=== PATIENT | male | born 1960 | race African-American/Black ===

== ENCOUNTER 2017-07-23 08:39 | Day surgery (SDC) | payer BC, OTHER ==
[2017-07-22 17:15] VITALS: BMI 24.3
--- NOTE | 2017-07-23 08:08 | HP ---
Satellite [facility] - Chief Complaint Chief Complaint: left wrist pain - Past Medical History Allergies/Adverse Reactions: Allergies Allergy/AdvReac Type Severity Reaction Status Date / Time No Known Allergies Allergy Verified 07/22/17 17:14 - Current Medications Current Medications: Home Medications Medication Instructions Recorded Doxazosin Mesylate [Cardura] 2 mg PO HS 07/22/17 Ibuprofen [Advil -] 200 mg PO PRN 07/22/17 Hydrocodone/Acetaminophen [[place] 1 each PO Q6H PRN #40 tablet MDD 4 07/23/17 5-325 Tablet] Satellite Physical Exam - Physical Examination General Appearance: Well Nourished, Well Developed, Alert & Oriented x3 ENT: Clear Lung: Normal air movement Heart: Regular rate & rhythm Extremities: Other (left wrist- +swelling, + ttp, decr rom, nvi xrays show severe wrist djd) Neurological: Intact, Alert, Oriented Satellite Impression/Plan - Impression/Plan Impression: left wrist djd Operative Procedure: left wrist proximal row carpectomy Date to be Performed: 07/23/17
[2017-07-23] MEDS ORDERED: ONDANSETRON 4 MG/2 ML VIAL IVPUSH PRN (09:31)
[2017-07-23] MEDS ORDERED: oxyCODONE HCL 5 MG TABLET PO PRN ×2 (09:31)
[2017-07-23] MEDS ORDERED: BUPIVACAINE HCL/PF 0.5% (5MG/ML) 10 ML VIAL ONE (09:41)
[2017-07-23] MEDS ORDERED: DEXAMETHASONE SOD PHOSPHATE/PF 10 MG/ML SDV ONE (09:41)
[2017-07-23] MEDS ORDERED: MIDAZOLAM HCL 2 MG/2 ML SINGLE DOSE VIAL ONE ×4 (09:42→12:41)
[2017-07-23] MEDS ORDERED: LACTATED RINGERS SOLUTION 1,000 ML IV SCH (09:45)
[2017-07-23] MEDS ORDERED: PROPOFOL 20 ML ONE ×4 (11:19→12:57)
[2017-07-23] MEDS ORDERED: ceFAZolin SODIUM 1 GM VIAL IVPB ONE (11:44)
--- NOTE | 2017-07-23 13:33 | OP ---
Operative Note - Note: Operative Date: 07/23/17 ([facility]) Pre-Operative Diagnosis: left wrist djd Operation: left wrist proximal row carpectomy Post-Operative Diagnosis: Same as Pre-op Surgeon: Deep Curry Oil Pipe Inspector Helper: Morgan Verma Anesthesiologist/FUNNEL COATER: Che Hood Anesthesia: Local, MAC Specimens Removed: bone fragments Estimated Blood Loss (mls): 0 (tourniquet) Operative Report Dictated: Yes
[2017-07-23 14:44] VITALS: TEMP 98.2
[2017-07-23 15:53] VITALS: BP 140/80; PULSE 56
--- NOTE | 2017-07-23 22:30 | OP ---
DATE OF OPERATION: 07/23/2017 PREOPERATIVE DIAGNOSIS: Left wrist osteoarthritis, scapholunate advanced collapse wrist. POSTOPERATIVE DIAGNOSIS: Left wrist osteoarthritis, scapholunate advanced collapse wrist. PROCEDURE: Left wrist proximal row carpectomy and PIN (posterior intraosseous nerve) neurectomy. SURGEON: Alexa Garrido M.D. GEOGRAPHIC INFORMATION SYSTEM ANALYST: Elisabeth Lim ANESTHESIA: Left interscalene block with MAC anesthesia. DRAINS: None. COMPLICATIONS: None. SPECIMEN: Carpal bones and posterior interosseus nerve, left wrist. BLOOD LOSS: None. BLOOD GIVEN: None. FLUID REPLACEMENT: 1200 mL. INDICATION: This patient is a 56-year-old male with a preoperative diagnosis of left wrist scapholunate advanced collapse and significant osteoarthritis. After understanding the potential risks, complications, alternatives, benefits to surgery versus nonsurgical treatment, the patient elected to undergo this procedure. He understands that he may have temporary or permanent paresthesias or numbness, and that we were removing 3 bones from his wrist and replacing. He may have certain restrictions in the future. He may have some continued pain. DESCRIPTION OF PROCEDURE: Patient brought to operating room, peripheral IV placed, IV sedation given, 1 g of IV Ancef was given, left interscalene block was performed, MAC anesthesia was induced. He was placed into a supine position. Left upper extremity was prepped and draped in sterile fashion. A transverse incision within Selma's lines were marked out with a marking pen. Left upper extremity was elevated, exsanguinated with an Esmarch bandage, and tourniquet inflated to 250 mmHg. A transverse incision was made with a number 15 scalpel blade. Subcutaneous hemostasis was achieved with a bipolar cautery. Dissection done down to the dorsal extensor retinaculum. Weitlaner retractors were placed into the wound. A longitudinal split was made in the extensor retinaculum. I was able to identify the extensor tendons in the second and third dorsal wrist compartments. These were retracted in a radial direction, and then dissected down to the radius at the base of the fourth dorsal extensor wrist compartment. Identified the posterior interosseus nerve and transected it to purposely denervate the dorsal wrist capsule. A piece of the PIN was sent off as specimen. Next, I did a mild T-capsulotomy, opening up the dorsal wrist capsule and with sharp dissection using a fresh number 15 scalpel blade, I dissected the soft tissue off the dorsal aspect of the proximal carpal row. Then I used a K-wire to identify the scaphoid and the lunate and documented this position with the C-arm fluoroscopy. Then using the 0.062 K-wire as a joystick, I did circumferential dissection around the scaphoid and the lunate with a number 15 scalpel blade and then took them out in their entirety in a piecemeal fashion using the osteotomes and the rongeur. Next, I did the same process with the triquetrum, first identifying it with a 0.062 K-wire, then removing it in the same process. I was then unable to feel or see any bone of the proximal carpal row in the wrist. The area was copiously irrigated and washed out. I then checked it again. I could not see or feel anything. I then did x-rays documenting complete excision of the scaphoid, the lunate, and the triquetrum. The area was irrigated and washed out again. The capitate seemed to sit quite nicely in the lunate fossa, and there was definitely some significant cartilage left in both the lunate fossa and the head of the capitate. I next used 2-0 Vicryl sutures to close the dorsal wrist capsule and then to close the dorsal extensor retinaculum, reestablishing the 4th dorsal wrist compartment. The area was then washed out, irrigated again with saline. The deep dermal layer closed with 4-0 undyed Vicryl, and the final skin approximation done with a running subcuticular 4-0 Biosyn. The area was then washed and dried, covered with Steri-Strips, 4x4s, Webril, and a volar hand, wrist, and forearm Ortho-Glass splint was applied, wrapped with Michael bandages. Tourniquet was taken down after total tourniquet time of about an hour and 20 minutes. There were no complications during the case. The patient tolerated the procedure quite well and was brought to the ambulatory recovery room in stable condition. ALEXA GARRIDO M.D. [id number]
--- NOTE | 2017-07-29 12:15 | PATH ---
Surgical Pathology Report Patient Name: NANCY MAC [facility]. Rec. #: [id number] /Age/Gender: 1960 (Age: 56) / M Account: [id number] Location: [facility] SURGICAL Taken: 07/23/2017 Received: 07/24/2017 Reported: 07/29/2017 Physicians: Deep Curry M.D. Specimen(s) Received SYNOVIAL TISSUE OF LEFT WRIST Clinical History Arthritis Final Diagnosis WRIST, LEFT, SYNOVIAL TISSUE AND BONE, PROXIMAL ROW CORPECTOMY: BONE WITH DEGENERATIVE CHANGES, SYNOVIUM, DENSE FIBROCONNECTIVE TISSUE, AND FIBROADIPOSE TISSUE. Electronically Signed Rosalia Garcia M.D. Gross Description Received in formalin labeled "synovial tissue left wrist," is a 4.0 x 3.5 x 0.8 cm aggregate of abundant bone and soft tissue fragments. A roofing sales representative portion is submitted in one cassette, following decalcification. /07/25/2017 saudi07/25/2017
== END 2017-07-23 15:45 | disposition home or self-care (01) ==
LOC: JASU-SURG 08:39
PROVIDERS: ATTEND Orthopaedic Surgery
PROC: 01D Peripheral Nervous System, Extraction (ICD-10-PCS; 2017-07-23)
PROC: 0PTN0ZZ Resection of Left Carpal, Open Approach (ICD-10-PCS; principal; 2017-07-23 10:30)
DX: M19.032 Primary osteoarthritis, left wrist (principal)
CPT/HCPCS: 76000-TC-FY; 88304-TC; 94760